=== PATIENT | male | born 1965 | race Caucasian/White ===

== ENCOUNTER 2023-06-12 21:02 | Emergency (ER) | payer MEDICAID ==
[~2023-06-12] VITALS: Ht 177.8 cm; Wt 83.0 kg
[2023-06-12 21:11] VITALS: TEMP 97.8; O2SAT 100
[2023-06-12] MEDS ORDERED: LACT10SO81 PO (21:14)
[2023-06-12 21:55] LABS: BASOPHILS % 0.9 % (0.0-2.0); DIFFERENTIAL COMMENT 0; EOSINOPHILS % 3.9 % (0.0-5.0); HEMATOCRIT. 39.3 % (42.0-52.0); HEMOGLOBIN. 14.1 g/dL (14.0-18.0); LYMPHOCYTES % 7.7 % (20.0-50.0); MEAN CORPUSCULAR HEMOGLOBIN 35.8 pg (28.0-32.0); MEAN CORPUSCULAR VOLUME 99.6 fL (80.0-94.0); MEAN PLATELET VOLUME 8.7 fl (7.4-10.4); NEUTROPHILS % 76.5 % (40.0-76.0); PLATELET 53 x1000/uL (130-400); RED BLOOD CELL COUNT 3.94 mill/uL (4.7-6.1); RED CELL DISTRIBUTION WIDTH 16.2 % (11.6-14.6); WHITE BLOOD COUNT 4.5 x1000/uL (4.5-11.0)
[2023-06-12 22:06] LABS: INR 1.3; PROTHROMBIN TIME 14.3 sec (9.6-11.0)
[2023-06-12 22:09] LABS: ALANINE AMINOTRANSFERASE 61 IU/L (10-49); ALBUMIN 3.2 g/dL (3.2-4.8); ASPARTATE AMINOTRANSFERASE 80 IU/L (<34); BILIRUBIN TOTAL 4.1 mg/dL (0.1-1.0); CALCIUM 8.1 mg/dL (8.7-10.4); CARBON DIOXIDE 26 mEq/L (21-32); CHLORIDE 105 mEq/L (98-107); CREATININE 0.6 mg/dL (0.6-1.3); ETHANOL BLOOD < 10 mg/dL (<10); GLUCOSE 89 mg/dL (70-105); PROTEIN TOTAL 7.1 g/dL (6.0-8.3); SODIUM 137 mEq/L (136-145); UREA NITROGEN BLOOD 7 mg/dL (9-23)
[2023-06-12] MEDS: CALCIUM GLUCONATE 1GM PREMIX 50 ML IV NR (22:15)
[2023-06-13 01:45] VITALS: BP 124/82; PULSE 72; RESP 18
[2023-06-13] MEDS: SODIUM CHLORIDE 0.9% 1,000 ML IV ONE (01:45)
[2023-06-13] MEDS: KETOROLAC 15MG/ML VIAL IV ONE (01:45)
[2023-06-13 02:17] LABS: CLARITY URINE CLEAR (CLEAR); COLOR URINE DARK YELLOW (YELLOW); GLUCOSE URINE NEGATIVE (NEGATIVE); KETONES URINE TRACE (NEGATIVE); LEUKOCYTE ESTERASE URINE TRACE (NEGATIVE); NITRITE URINE NEGATIVE (NEGATIVE); OCCULT BLOOD URINE NEGATIVE (NEGATIVE); PH URINE 6.5 (4.5-8.0); PROTEIN URINE NEGATIVE (NEGATIVE); SPECIFIC GRAVITY URINE 1.024 (1.005-1.030)
[2023-06-13 02:41] LABS: WBC URINE 0-2 /hpf (0-2)
[2023-06-13 02:42] LABS: BACTERIA URINE NONE SEEN; SQUAMOUS EPITHELIAL CELL URINE NONE SEEN /lpf (RARE/1+)
[2023-06-13] MEDS: IOHEXOL-300 100 ML BOTTLE ONE (03:50)
[2023-06-13] MEDS ORDERED: ONDA4TAB50 MT (05:28)
[2023-06-13] MEDS ORDERED: IBUP-2029 MT (05:28)
[2023-06-13] MEDS ORDERED: LACT10SO6 MT (05:28)
== END 2023-06-13 06:06 | disposition home or self-care (01) ==
LOC: ER 21:02
DX: R10.32 Left lower quadrant pain (principal); Z85.05 Personal history of malignant neoplasm of liver
CPT/HCPCS: 80053; 80320; 83605; 83690; 85025; 85610; 36415; 99285; 81003; 74177; 96361; 96374; J0610; Q9967; J1885; J7030; Z7610 ×2; G0480